=== PATIENT | male | born 1940 | race Caucasian/White ===

== ENCOUNTER 2019-07-07 19:04 | Emergency (ER) | payer OTHER, SELFPAY ==
[2019-07-07] MEDS ORDERED: BISACODYL 10 MG RECTAL SUPP ONE (20:39)
[2019-07-07 20:40] LABS: Potassium 4.4 mmol/L (3.5-5.1)
[2019-07-07 21:09] LABS: Absolute Lymphocytes (CBC) 2.2 K/uL (0.7-4.9); Basophils % 0.8 % (0-1.3); Hematocrit 43.8 % (39.6-49.0); Lymphocytes % 30.3 % (15.3-44.8); MPV 8.7 fL (7.6-11.3); RBC Red Blood Cell Count 4.31 M/uL (4.33-5.43)
[2019-07-07 22:36] LABS: Blood Morphology Comment NOT SEEN (NOT SEEN); Platelet Estimate ADEQ; Urine White Blood Cell Casts OK
--- NOTE | 2019-07-07 22:53 | ER ---
Nurse's Notes [facility] Name: Daniel Donnelly Age: 78 yrs Sex: Male : 1940 Arrival Date: 07/07/2019 Time: 19:09 Bed 16 Private MD: Diagnosis: Retention of urine;Hematuria;Constipation Presentation: 07/07 19:17 Presenting complaint: Patient states: had spinal sx 07/01/19. pt seen at [facility] ER ak1 07/03/19 with a catheter and laxative. catheter removed by his PA on 07/06/19. pt is still not urinating or having BM. Dr. Tran Ballesteros in [facility] did the spinal sx. Transition of care: patient was not received from another setting of care. Onset of symptoms is unknown. Risk Assessment: Do you want to hurt yourself or someone else? Patient reports no desire to harm self or others. Initial Sepsis Screen: Does the patient meet any 2 criteria? No. Patient's initial sepsis screen is negative. Does the patient have a suspected source of infection? No. Patient's initial sepsis screen is negative. Care prior to arrival: None. 19:17 Method Of Arrival: Ambulatory ak1 19:17 Acuity: ABIODUN 3 ak1 Triage Assessment: 19:20 General: Appears in no apparent distress. Behavior is calm, cooperative. ak1 Historical: - Allergies: 19:20 No Known Allergies; ak1 - PMHx: 19:20 High Cholesterol; ak1 - Immunization history:: Adult Immunizations unknown. - Social history:: Smoking status: unknown. - Ebola Screening: : No symptoms or risks identified at this time. Screenin:35 Abuse screen: Denies threats or abuse. Denies injuries from another. Nutritional aa1 screening: No deficits noted. Tuberculosis screening: No symptoms or risk factors identified. Fall Risk None identified. Assessment: 19:35 General: Appears in no apparent distress. comfortable, slender, Behavior is calm, aa1 cooperative, appropriate for age. Pain: Complains of pain in suprapubic area. Neuro: Level of Consciousness is awake, alert, obeys commands, Oriented to person, place, time, situation, Moves all extremities. Full function Gait is steady. Respiratory: Airway is patent Respiratory effort is even, unlabored, Respiratory pattern is regular, symmetrical. GI: Abd is soft and non tender X 4 quads. Reports constipation. : Reports inability to void, since back surgery. EENT: No signs and/or symptoms were reported regarding the EENT system. Derm: Skin is intact, is healthy with good turgor, Skin is pink, warm \T\ dry. Musculoskeletal: Circulation, motion, and sensation intact. Capillary refill < 3 seconds. 20:30 Reassessment: Patient appears in no apparent distress at this time. Patient and/or aa1 family updated on plan of care and expected duration. Pain level reassessed. Patient is alert, oriented x 3, equal unlabored respirations, skin warm/dry/pink. Awaiting lab results. 21:30 Reassessment: Patient appears in no apparent distress at this time. Patient and/or aa1 family updated on plan of care and expected duration. Pain level reassessed. Patient is alert, oriented x 3, equal unlabored respirations, skin warm/dry/pink. sample room supervisor to bring 3-way catheter. 22:23 Reassessment: Patient appears in no apparent distress at this time. Patient and/or aa1 family updated on plan of care and expected duration. Pain level reassessed. Patient is alert, oriented x 3, equal unlabored respirations, skin warm/dry/pink. Awaiting provider reassessment. 23:35 Reassessment: Patient appears in no apparent distress at this time. Patient is alert, aa1 oriented x 3, equal unlabored respirations, skin warm/dry/pink. Discussed d/c \T\ f/u instructions with pt; denies questions or concerns at this time. Ambulatory to lobby with steady gait. Burgess left in place for f/u with urology Patient states symptoms have improved. Vital Signs: 19:20 BP 134 / 106; Pulse 84; Resp 18; Temp 98.1; Pulse Ox 96% on R/A; Weight 79.38 kg (R); ak1 Height 5 ft. 10 in. (177.80 cm) (R); Pain 0/10; 19:20 Pain 4/10; ak1 20:45 BP 125 / 84; Pulse 84; Resp 18; Pulse Ox 98% on R/A; aa1 21:30 BP 121 / 92; Pulse 87; Resp 18; Pulse Ox 98% on R/A; Pain 0/10; aa1 22:23 BP 130 / 97; Pulse 86; Resp 16; Pulse Ox 96% on R/A; Pain 0/10; aa1 23:35 BP 131 / 89; Pulse 81; Resp 16; Temp 98.0; Pulse Ox 97% on R/A; Pain 0/10; aa1 19:20 Body Mass Index 25.11 (79.38 kg, 177.80 cm) ak1 ED Course: 19:09 Patient arrived in ED. mr 19:19 Triage completed. ak1 19:20 Arm band placed on Patient placed in an exam room, Patient notified of wait time. ak1 19:35 Flaco Cowan MD is Attending Physician. gs 19:35 Patient has correct armband on for positive identification. Placed in gown. Bed in low aa1 position. Call light in reach. Pulse ox on. NIBP on. Warm blanket given. 19:55 Bladder scan completed. 290 cc. aa1 20:07 Inserted saline lock: 20 gauge in left antecubital area, using aseptic technique. Blood jd2 collected. 20:08 Initial lab(s) drawn, by ut, sent to lab. jd2 20:34 Tatiana Escalante, SYLVESTER is Primary Nurse. aa1 22:10 3-way catheter inserted, using sterile technique, 16 Fr. Returned Blood tinged urine aa1 with some small clots. 22:53 Osiel Conley MD is Referral Physician. gs 23:35 No provider procedures requiring assistance completed. IV discontinued, intact, aa1 bleeding controlled, No redness/swelling at site. Pressure dressing applied. Administered Medications: 20:56 Drug: Dulcolax Suppository 10 mg Route: ID; aa1 Outcome: 22:53 Discharge ordered by . gs 23:35 Discharged to home ambulatory. aa1 23:35 Condition: good 23:35 Discharge instructions given to patient, Instructed on discharge instructions, follow up and referral plans. medication usage, Demonstrated understanding of instructions, follow-up care, medications, Prescriptions given X 2. 23:36 Patient left the ED. aa1 Signatures: Tatiana Escalante RN RN aa1 Bárbara Mcghee mr McphersonGiana RN RN ak1 Bassam Stauffer jd2 Flaco Cowan MD MD gs
--- NOTE | 2019-07-07 22:54 | EDPHYS ---
Physician Documentation [facility] Name: Daniel Donnelly Age: 78 yrs Sex: Male : 1940 Arrival Date: 07/07/2019 Time: 19:09 Bed 16 Private MD: ED Physician Flaco Cowan HPI: 07/07 22:50 This 78 yrs old Male presents to ER via Ambulatory with complaints of Blood gs in urine. 22:50 The patient presents with urinary symptoms, retention, hematuria. Onset: The gs symptoms/episode began/occurred acutely, this morning, had milian removed today. Modifying factors: The symptoms are alleviated by nothing, the symptoms are aggravated by nothing. Associated signs and symptoms: Pertinent positives: constipation. Severity of symptoms: At their worst the symptoms were severe, in the emergency department the symptoms are unchanged. The patient has experienced similar episodes in the past, a few times. The patient has been recently seen by a physician: with similar presenting complaints. Historical: - Allergies: 19:20 No Known Allergies; ak1 - PMHx: 19:20 High Cholesterol; ak1 - Immunization history:: Adult Immunizations unknown. - Social history:: Smoking status: unknown. - Ebola Screening: : No symptoms or risks identified at this time. ROS: 22:50 All other systems are negative. gs Exam: 22:50 Head/Face: Normocephalic, atraumatic. Eyes: Pupils equal round and reactive to light, gs extra-ocular motions intact. Lids and lashes normal. Conjunctiva and sclera are non-icteric and not injected. Cornea within normal limits. Periorbital areas with no swelling, redness, or edema. ENT: Nares patent. No nasal discharge, no septal abnormalities noted. Tympanic membranes are normal and external auditory canals are clear. Oropharynx with no redness, swelling, or masses, exudates, or evidence of obstruction, uvula midline. Mucous membranes moist. Neck: Trachea midline, no thyromegaly or masses palpated, and no cervical lymphadenopathy. Supple, full range of motion without nuchal rigidity, or vertebral point tenderness. No Meningismus. Chest/axilla: Normal chest wall appearance and motion. Nontender with no deformity. No lesions are appreciated. Cardiovascular: Regular rate and rhythm with a normal S1 and S2. No gallops, murmurs, or rubs. Normal PMI, no JVD. No pulse deficits. Respiratory: Lungs have equal breath sounds bilaterally, clear to auscultation and percussion. No rales, rhonchi or wheezes noted. No increased work of breathing, no retractions or nasal flaring. Abdomen/GI: Soft, non-tender, with normal bowel sounds. No distension or tympany. No guarding or rebound. No evidence of tenderness throughout. Back: No spinal tenderness. No costovertebral tenderness. Full range of motion. 22:50 Skin: Warm, dry with normal turgor. Normal color with no rashes, no lesions, and no evidence of cellulitis. MS/ Extremity: Pulses equal, no cyanosis. Neurovascular intact. Full, normal range of motion. Neuro: Awake and alert, GCS 15, oriented to person, place, time, and situation. Cranial nerves II-XII grossly intact. Motor strength 5/5 in all extremities. Sensory grossly intact. Cerebellar exam normal. Normal gait. 22:50 Constitutional: The patient appears alert, awake. 22:50 : Bladder: distension, that is moderate. 22:50 Neuro: able to walk no gross deficits no saddle anesthesia. Vital Signs: 19:20 BP 134 / 106; Pulse 84; Resp 18; Temp 98.1; Pulse Ox 96% on R/A; Weight 79.38 kg (R); ak1 Height 5 ft. 10 in. (177.80 cm) (R); Pain 0/10; 19:20 Pain 4/10; ak1 20:45 BP 125 / 84; Pulse 84; Resp 18; Pulse Ox 98% on R/A; aa1 21:30 BP 121 / 92; Pulse 87; Resp 18; Pulse Ox 98% on R/A; Pain 0/10; aa1 22:23 BP 130 / 97; Pulse 86; Resp 16; Pulse Ox 96% on R/A; Pain 0/10; aa1 23:35 BP 131 / 89; Pulse 81; Resp 16; Temp 98.0; Pulse Ox 97% on R/A; Pain 0/10; aa1 19:20 Body Mass Index 25.11 (79.38 kg, 177.80 cm) ak1 MDM: 19:51 Patient medically screened. 22:50 Differential diagnosis: spoke to grand daughter will need to follow up with neuro and urology as well as home health she understands and will take care of. Data reviewed: vital signs, nurses notes. 07/07 19:36 Order name: CBC with Diff; Complete Time: 22:49 07/07 19:36 Order name: Basic Metabolic Panel; Complete Time: 22:49 07/07 21:13 Order name: CBC Smear Scan; Complete Time: 22:49 EDKS 07/07 22:59 Order name: Urine Dipstick--Ancillary (enter results) mw2 07/07 19:36 Order name: Bladder Scanner; Complete Time: 20:10 07/07 19:37 Order name: Milian: if bladder full; Complete Time: 22:10 07/07 22:49 Order name: Urine Dipstick-Ancillary (obtain specimen); Complete Time: 22:59 Administered Medications: 20:56 Drug: Dulcolax Suppository 10 mg Route: IN; aa1 Disposition: 07/07/19 22:53 Discharged to Home. Impression: Retention of urine, Hematuria, Constipation. - Condition is Stable. - Discharge Instructions: Hematuria, Adult, Acute Urinary Retention, Male, Constipation, Adult, [id number], Milian Catheter Care, Adult, [id number]. - Prescriptions for Dulcolax 10 mg Rectal Suppository - insert 1 suppository by RECTAL route every 6 hours As needed; 10 suppository. Miralax 17 gram/dose Oral - take 1 packet by ORAL route once daily dilute powder in 8 ounces of water or juice; 1 bottle. - Medication Reconciliation Form, Thank You Letter, Antibiotic Education, Prescription Opioid Use form. - Follow up: Osiel Conley MD; When: 2 - 3 days; Reason: Re-evaluation by your physician. Signatures: Dispatcher [employer] EDMS Tatiana Escalante RN RN aa1 Giana Mcpherson RN RN ak1 Flaco Cowan MD MD Corrections: (The following items were deleted from the chart) 23:36 22:53 07/07/2019 22:53 Discharged to Home. Impression: Retention of urine; Hematuria; aa1 Constipation. Condition is Stable. Forms are Medication Reconciliation Form, Thank You Letter, Antibiotic Education, Prescription Opioid Use. Follow up: Osiel Conley; When: 2 - 3 days; Reason: Re-evaluation by your physician. gs
[2019-07-07 23:36] LABS: Urine Blood 3+ (NEG); Urine Glucose NEGATIVE (NEG); Urine Protein 1+ (NEG); Urine Specific Gravity >1.030 (1.005-1.030); Urine pH 5.5 (5.0-7.0)
[2019-07-08 00:46] VITALS: TEMP 98.1
[2019-07-08 00:50] VITALS: BP 130/97; O2SAT 96
== END 2019-07-07 23:36 | disposition home or self-care (01) ==
LOC: ER 19:04
DX: R31.9 Hematuria, unspecified (principal); K59.00 Constipation, unspecified
CPT/HCPCS: 36415; 80048; 81003; 85025; 99284